=== PATIENT | female | born 1980 | race Caucasian/White ===

== ENCOUNTER → 2021-04-03 | Outpatient (CLI) | payer SELFPAY ==
--- NOTE | 2021-04-03 15:29 | Diagnostic Imaging Report ---
INDICATION: Family history of cardiac disease. TECHNIQUE: CT cardiac calcium scoring study performed with noncontrast images of the heart followed by calculation of cardiac score. FINDINGS: Raw data images demonstrate no significant coronary artery calcification. Visualized portions of the thoracic aorta are normal in caliber. There are no enlarged mediastinal or hilar nodes. Visualized portions of the lung gonzalez were clear; the entirety of the lungs are not imaged on this study. CT coronary calcium score was 0 in all territories. IMPRESSION: CT cardiac calcium score was 0, no significant coronary artery calcification. There were no incidental findings. Dictated by: Dictated on workstation # [id number]
== END ==
LOC: RAD FS 14:29
PROVIDERS: ATTEND Nurse Practitioner Family
DX: R07.89 Other chest pain (principal); Z82.49 Family history of ischemic heart disease and other diseases of the circulatory system
CPT/HCPCS: 75571